=== PATIENT | male | born 1995 | race Two or more races ===

== ENCOUNTER → 2023-11-01 | Outpatient (CLI) | payer OTHER ==
[~2023-11-01] MED LIST: E-Z-GAS II EFFERVESCENT PACKET (SODIUM BICARB./CITRIC ACID/SIMETHICONE) As Ordered ONE; E-Z-HD 98% w/w 340GM SUSP BTL As Ordered ONE; E-Z-PAQUE 96% w/w SUSP 176GM BTL As Ordered ONE
== END ==
LOC: M RAD 08:43
PROVIDERS: ATTEND Student in an Organized Health Care Education/Training Program
DX: R11.10 Vomiting, unspecified (principal); K44.9 Diaphragmatic hernia without obstruction or gangrene

== ENCOUNTER 2024-03-02 11:59 | Day surgery (SDC) | payer OTHER ==
[~2024-03-02] VITALS: Ht 177.8 cm; Wt 83.7 kg
[2024-03-02] MEDS: NS 1,000 ML IV ONE (06:00)
[2024-03-02] MEDS ORDERED: fentaNYL 100 MCG/2 ML INJECTION As Ordered ONE (12:48)
[2024-03-02] MEDS ORDERED: LIDOCAINE 2% 100MG/5ML SDV (FOR ANES.) As Ordered ONE (12:49)
[2024-03-02 13:10] VITALS: TEMP 97.3
[2024-03-02 13:25] VITALS: BP 117/94; O2SAT 97
[2024-03-02] MEDS ORDERED: propofoL 200 MG/20 ML VIAL As Ordered ONE (13:27)
== END 2024-03-02 13:40 | disposition home or self-care (01) ==
LOC: M OPP 11:59
PROVIDERS: ATTEND Internal Medicine Gastroenterology
DX: K29.70 Gastritis, unspecified, without bleeding (principal); K21.00 Gastro-esophageal reflux disease with esophagitis, without bleeding; K92.2 Gastrointestinal hemorrhage, unspecified; R11.2 Nausea with vomiting, unspecified; F17.200 Nicotine dependence, unspecified, uncomplicated; Z79.899 Other long term (current) drug therapy
CPT/HCPCS: 43239; 88305; J3010

== ENCOUNTER → 2024-04-18 | Outpatient (CLI) | payer OTHER | LOC: M RAD 08:51 | PROVIDERS: ATTEND Internal Medicine Gastroenterology | DX: R11.10 Vomiting, unspecified (principal) ==